=== PATIENT | male | born 1955 | race Caucasian/White ===

== ENCOUNTER 2017-10-09 14:41 | Emergency (ER) | payer OTHER ==
--- NOTE | 2017-10-09 18:47 | EDPHY ---
H & P Stated Complaint: drove 4 days from [place] has pain swelling r lower leg Time Seen by Provider: 10/09/17 16:36 HPI/ROS: CHIEF COMPLAINT: Right knee pain and leg swelling HISTORY OF PRESENT ILLNESS: This is a 62-year-old male who presents with right knee pain and swelling of the right foot and ankle. He has been experiencing right knee pain for quite some time but it has recently worsened. He underwent a left knee replacement in the past and states that the knee pain he has been experiencing is similar to what he used to have in the left knee. He has attributed it to degenerative arthritis. However, this past week in his drove from [place] to [place] in an RV. This involved lots of sitting. He also reports an episode last week where his right knee got sandwiched between a wall and a Ki act. He thinks that his pain worsened following that event. He also feels that the driving has exacerbated his knee discomfort. He notes that he has pain behind his knee. Over the past day or so he has also noted swelling involving his right ankle and foot. REVIEW OF SYSTEMS: A ten point review of systems was performed and is negative with the exception of the items mentioned in the HPI. Past medical history: Negative Past surgical history: Left knee replacement Social history: He and his were here visiting their daughter and grandchild. They live in [place]. He does not use tobacco products. General Appearance: Alert. Vital signs reviewed. Blood pressure 161/95, heart rate 117 at triage. Eyes: Pupils equal and round, no conjunctival injection, no discharge. Anicteric. Respiratory: Lungs are clear to auscultation; no wheezes, rales, or rhonchi. Cardiovascular: Regular rate and rhythm; no murmur, rub, or gallop. Gastrointestinal: Abdomen is soft and nontender. Skin: Warm and dry, no rashes on exposed skin, normal color. Skin is abbott. Back: Nontender to palpation over the thoracolumbar spine. No CVAT. Extremities: Mild knee effusion on the right. He has full active range of motion of his right knee and no appreciable instability with provocative testing. There is tenderness with palpation behind the right knee, no palpable bulge or fullness. Skin temperature of the right knee is normal and there is no erythema. Neurological: Alert and oriented. Moving all four extremities easily and equally. Sensation intact to light touch over both lower extremities. Pulses: 2+ dorsalis pedis pulses bilaterally. Psychiatric: Normal affect. - Personal History Current Tetanus/Diphtheria Vaccine: Yes - Medical/Surgical History Hx Asthma: No Hx Chronic Respiratory Disease: No Hx Diabetes: No Hx Cardiac Disease: No Hx Renal Disease: No Hx Cirrhosis: No Hx Alcoholism: No Hx HIV/AIDS: No Hx Splenectomy or Spleen Trauma: No Other PMH: l knee replacement - Social History Smoking Status: Never smoked Constitutional: Initial Vital Signs Temperature (C) 36.5 C 10/09/17 14:45 Heart Rate 84 10/09/17 14:45 Respiratory Rate 17 10/09/17 14:45 Blood Pressure 161/95 H 10/09/17 14:45 O2 Sat (%) 95 10/09/17 14:45 O2 Delivery Mode Room Air Allergies/Adverse Reactions: No Known Allergies Allergy (Unverified 10/09/17 14:44) Home Medications: Medication Instructions Recorded Crestor 10/09/17 Lotrel 10-40 mg Capsule 10/09/17 Medical Decision Making ED Course/Re-evaluation: He was noted to be hypertensive and tachycardic at triage but both of these resolved during his stay in the emergency department. Right lower extremity ultrasound is negative for DVT. X-ray of the right knee was reviewed by me and I have also reviewed the radiology report. The x-rays show osteoarthritis and posterior fullness in the lateral view that could possibly represent a Jimenez's cyst. Patient has no shortness of breath and although he was tachycardic initially this quickly resolved. I do not suspect PE. He understands that no DVT is shown on the ultrasound but that this test, like any diagnostic test, is not 100 % accurate. It is my impression that he likely has a Jimenez's cyst although this was not seen on the ultrasound. There is a suggestion of Jimenez cyst on the plain films. He and I have discussed this. I am recommending symptomatic treatment at this point in time. I have also recommended re-evaluation should he worsen in any way or should his symptoms persist. Differential Diagnosis: I considered a differential diagnosis that includes but is not limited to venous or arterial occlusion, Jimenez cyst, fracture, ligamentous or meniscal injury, and infection such as cellulitis. Departure - Departure Disposition: Home, Routine, Self-Care Clinical Impression: Jimenez's cyst of knee Qualifiers: Laterality: right Qualified Code(s): M71.21 - Synovial cyst of popliteal space [Jimenez], right knee Condition: Good Instructions: Bakers Cyst (ED) Additional Instructions: Treat your pain with Tylenol and/or ibuprofen as below. Adult Pain & Fever Control: We recommend Acetaminophen (Tylenol) and Ibuprofen (Motrin,Advil) for pain and fever control. When fever is high or pain severe, both drugs can be used at the same time, but at different intervals. Please note the time differences. Your dose is: Acetaminophen [650]mg every 4 to 6 hours Ibuprofen [f400]mg every [8] hours with food OR Note: do not take Acetaminophen with Hydrocodone (Vicodin, Lortab) or Oycodone (Percocet). These medications also contain Acetaminophen. No more than 3000mg of Acetaminophen should be taken in 24 hours (for an adult). If you are not getting better, or if you are getting worse you need to be reexamined. Watch for increased swelling, worsening pain, warmth, skin redness , fever, any new or concerning symptoms. As you know, it is not a 100% certain diagnosis that this is a Jimenez's cyst. We did not find deep venous thrombosis on your ultrasound. However occasionally they are missed. Referrals: [facility] [Other] - As per Instructions
[2017-10-09 19:09] VITALS: BP 135/75
== END 2017-10-09 19:10 | disposition home or self-care (01) ==
DX: M71.21 Synovial cyst of popliteal space [Baker], right knee (principal)